=== PATIENT | male | born 1975 | race Caucasian/White ===

== ENCOUNTER 2022-03-10 20:49 | Emergency (ER) | payer OTHER, MEDICAID ==
[~2022-03-10] VITALS: Ht 172.7 cm; Wt 175.0 kg
[2022-03-10 21:31] VITALS: BP 124/78
== END 2022-03-11 03:17 | disposition home or self-care (01) ==
LOC: ER 20:51
DX: R07.89 Other chest pain (principal); M10.9 Gout, unspecified
CPT/HCPCS: 71045; 93005

== ENCOUNTER 2024-06-20 22:48 | Emergency (ER) | payer OTHER, MEDICAID ==
[~2024-06-20] VITALS: Ht 170.2 cm; Wt 176.0 kg
--- NOTE | 2024-06-20 23:17 | ED.PDOC ---
History of Present Illness HPI Comments 49-year-old male with PMHx Gout, HTN, Depression, Renal Stones presents with a chief complaint of left knee pain x 1 week. Patient denies any trauma or injuries prior to onset of symptoms. Patient mentions that the pain feels internal, rather than superficial to the skin. Patient is able to walk on his left leg, but states that it is painful to do so. Patient reports that he has been taking ibuprofen 600mg for the pain, but denies any relief. No other symptoms or modifying factors present at this time. Time Seen by MD: 23:06 Reviewed Notes: Medications, Allergies Allergies: Coded Allergies: NO KNOWN ALLERGIES (Unverified , 06/20/24) Information Source: Patient Mode of Arrival: Ambulatory Severity: Moderate Timing: Days Duration: Since onset Prehospital treatment: None Vital Signs Vital Signs Date Time Temp Pulse Resp B/P (MAP) Pulse Ox O2 Delivery O2 Flow Rate FiO2 06/20/24 23:24 97.8 71 19 141/100 (114) 94 Physical Exam General: Awake, alert and oriented. No acute distress. Skin: Skin in warm, dry and intact without rashes or lesions. HEENT: The head is normocephalic and atraumatic. Conjunctivae are clear without exudates or hemorrhage. Sclera is non-icteric. Neck: Normal range of motion. No JVD. Cardiac: Regular rate Respiratory: No signs of respiratory distress. No Stridor. Extremities: Bilateral DP pulses intact. Skin is pink, well-perfused, normal capillary refill. Bilateral lower extremity edema noted, worse on the left. Left anterior knee tenderness to palpation Neurological: The patient is awake, alert and oriented to person, place, and time with normal speech. Speech is clear. There is no facial asymmetry. Psychiatric: Appropriate mood and affect. Good judgement and insight. No visual or auditory hallucinations. No suicidal or homicidal ideation. Review of Systems: REVIEW OF SYSTEMS: No fever, no chills, or fatigue HEENT: No sore throat, earache, or congestion. No neck pain. Cardiac: No chest pain. No palpitations. Lungs: No shortness of breath or cough. GI: No nausea, no vomiting, no diarrhea, no constipation, no abdominal pain : No dysuria, frequency, or urgency. No hematuria. Musculoskeletal: Left knee pain, left lower extremity edema, painful ambulation. Skin: No rash or itching. Neuro: No headache, dizziness, weakness Past Medical History PAST MEDICAL HISTORY: Depression, Gout Surgical History: Denies all surgeries Family History Family History: Reviewed,noncontributory to illness Social History Smoker: Non-Smoker Alcohol: Denies ETOH Use Drugs: Denies Drug Use Lives In: Home Was a procedure done? Was a procedure done?: No Differential Dx Considerations may include: Cellulitis, fracture, joint dislocation, cartilaginous or ligamentous injury, ischemia, peripheral arterial disease, DVT, other X-Ray, Labs, Meds, VS Vital Signs Date Time Temp Pulse Resp B/P (MAP) Pulse Ox O2 Delivery O2 Flow Rate FiO2 06/20/24 23:24 97.8 71 19 141/100 (114) 94 Time of 1ST Reevaluation: 23:36 Reevaluation 1ST: Unchanged Patient Education/Counseling: Diagnosis, Treatment, Prognosis Family Education/Counseling: No Family Present Departure 1 Departure Time of Disposition: 00:21 Impression: Primary Impression: Pain of left lower extremity Additional Impression: Elevated blood pressure reading Disposition: HOME / SELF CARE / HOMELESS Condition: Stable Additional Instructions: ED DISCHARGE INSTRUCTIONS Instructions: Please read all instructions provided in this packet carefully. Although you have been discharged from the Emergency Department, this does not mean that you have a "clean bill of health". No definitive diagnosis for your symptoms has been made today. It is possible that you are in the process of developing a serious illness. This is why you must return to the ED without fail if any new or worsening symptoms (especially if your symptoms include chest pain, trouble breathing, abdominal pain, fever, headache, confusion, trouble seeing, or trouble walking) It is also very important that you see a primary care doctor within the next 3-5 days to follow up. You may need further testing such as MRI, orthopedics referral If you are unable to get an appointment, return to the ED for re-evaluation. You had elevated blood pressure reading today. Untreated high blood pressure can have serious consequences. However, you need a follow-up appointment to recheck your blood pressure to determine whether or not you need treatment. Make an appointment with your primary care provider for this within the next week. Comments 49-year-old male with left knee pain, left lower extremity swelling, hypertension. Extensive evaluation performed to rule out ischemic limb, DVT in the left lower extremity which could to life-threatening pulmonary embolism. There is no DVT on the Ultrasound. Independent interpretation of the x-ray of the left knee no evidence of acute fracture Patient also noted to have elevated blood pressure, no associated signs or symptoms of acute coronary syndrome, hypertensive emergency or urgency. Patient felt stable for discharge home to follow up with primary care provider promptly and return to the emergency department with any new, worsening or concerning symptoms. Critical Care Note Critical Care Time?: No Stability Stability form required: No I personally scribed for ANDRE URRUTIA MD ([email or web address]) on 06/20/24 at 23:17. Electronically submitted by Isidro Solorio ([email or web address]). ANDRE URRUTIA MD Jun 20, 2024 23:17
--- NOTE | 2024-06-20 23:58 | DVH ---
CLINICAL INDICATION: left knee pain TECHNIQUE: 4 views of the left knee. XY L KNEE 3V XRAY Comparison: None FINDINGS/IMPRESSION: There is no evidence of acute fracture or dislocation. Soft tissues are unremarkable.
--- NOTE | 2024-06-20 23:59 | DVH ---
Left lower extremity venous duplex Clinical History: left calf, pain , swelling Comparison: None Technique: Duplex Doppler evaluation of the deep venous system of the left lower extremity from the common femor al vein to the popliteal vein including color Doppler and spectral/pulsed waveform analysis was perfo rmed. Findings: The common femoral vein demonstrates appropriate compressibility and waveform variability. There is compressibility/patency of the great saphenous vein at the proximal thigh. The femoral vein demonstrates appropriate compressibility and waveform variability. The deep femoral vein demonstrates appropriate compressibility and waveform variability. The popliteal vein demonstrates appropriate compressibility and waveform variability. There is normal compressibility at the tibioperoneal trunk. Impression: 1. No left femoropopliteal venous thrombosis.
[2024-06-21 01:30] VITALS: BP 120/67; TEMP 98.2
[2024-06-21 01:31] VITALS: PULSE 68; RESP 18; O2SAT 98
== END 2024-06-21 01:29 | disposition home or self-care (01) ==
LOC: ER 22:48
DX: M25.562 Pain in left knee (principal); M79.662 Pain in left lower leg; I10 Essential (primary) hypertension; M10.9 Gout, unspecified; Z87.442 Personal history of urinary calculi
CPT/HCPCS: 73562; 93971